=== PATIENT | female | born 2005 | race Caucasian/White ===

== ENCOUNTER 2024-08-21 09:42 | Outpatient (CLI) | payer OTHER, SELFPAY ==
--- OUTSIDE RECORDS SUMMARY | 2024-08-21 10:26 | XMS_ITS | Encounter Summary ---
Author Organization [facility] Address 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
--- OUTSIDE RECORDS SUMMARY | 2024-08-21 10:26 | XMS_ITS | Referral Summary ---
Author Organization [facility] [address] Address [address] [place] [address] Phone Care Team Providers Care Director Surgical Name Role Phone Tory Shields MD Primary Care Provider + [phone] Allergies Active Allergy Reactions Criticality Noted Date Comments Amoxicillin Hives High 05/08/2020 Medications spironolactone (ALDACTONE) 50 mg tablet 11/05/19 22 Active ondansetron ODT (ZOFRAN-ODT) 8 mg disintegrating tablet Give 1 tablet every 6 hours as needed for vomiting 8 tablet 07/22/20 22 Active Additional Information Patient not taking.Reported on 11/21/2022 medroxyPROGESTERon e 150 mg/mL injectionIndicatio ns:Encounter for surveillance of injectable contraceptive Inject 1 mL (150 mg total) into the muscle as instructed every 3 (three) months 1 mL 4 11/27/19 24 Active Active Problems Problem Noted Date Diagnosed Date Small intestinal bacterial overgrowth (SIBO) 06/2022 Overview (05/05/2022): 04-04-22 GI note says resolved on Flagyl. Abdominal pain, epigastric 01/03/2022 Overview (01/03/2022): Added automatically from request for surgery [id number] Abdominal pain, LUQ 01/03/2022 Overview (01/03/2022): Added automatically from request for surgery [id number] Hot flashes 11/16/2021 Overview (11/16/2021): 11-16-21 thyroid panel ordered: Normal. Infectious mononucleosis 08/10/2021 Overview (08/10/2021): 08/09/2021 tired, puffy eyelids, neck nodes Sinusitis 05/11/2021 Overview (05/11/2021): 05-11-21 & RLL crackles Zith X 2 Otitis externa 12/17/2020 Overview (01/07/2021): 12-17-20 worse despite COS drops so Dr. Paige prescribed Bactrim with rapid resolution of symptoms . . . Recur 01-07-21 so I Rx CiproDex and if not improving may need debridement by ENT Menometrorrhagia 01/29/2020 Overview (12/14/2020): On estrogen free Depo shot with success Acne 01/14/2020 Overview (02/15/2021): 01-13-20 Derm Rx clindamycin 1% daily (BID just as spot treatment) and tretinoin 0.05% cream hs. Right foot pain 12/27/2019 Overview (01/29/2020): 11-19-19 MRI suggested stress fx 3rd metatarsal but 12-24-19 CT negative . . . 01-29-20 still in boot and being followed Skin infection 08/19/2019 Overview (08/21/2019): 08-19-19 earring hole red and draining Keflex (Staph aureus very sensitive) Shaky 08/19/2019 Overview (02/15/2021): 08-19-19 Mother reports child gets pale and shaky with sports and this resolves with giving her something sweet; occurs even if eats protein prior. Rec measure blood sugar at the time. Rec increase fluids. 02-15-21 now this rarely occurs. Abdominal pain 05/01/2018 Overview (05/05/2022): Since January 2018 ill defined mid abdomen QID not related to meals; queasy . 05-01-18 CBC, ESR, Chem panel, celiac normal BUT low IgA. KUB full of stool so clean out - pain resolved. 06-05-18 Pedi GI JULIO DX IBS with dyspepsia, constipation; Rx Bentyl BID and omprazole and f/u Jul 2018. 06-13-18 stool calprotein normal. 01-29-20 infrequent stools with urinary frequency . . . 02-15-21 the same. 09-20-21 patient says SX gone after appendectomy for appendicitis; did she have small bowel overgrowth syndrome and the antibiotics resolved it? 11-16-21 recurrence of abdominal pain and diarrhea after meals. First go off dairy again; if this does not work restart Bentyl; if this does not work refer to GI. Celiac panel: negative. 01-23-22 [facility] GI doing labs, RUQ US (normal), EGD. EGD normal and biopsies normal. [facility] got h/o melena. Acute otitis media 01/25/2017 Overview (01/11/2018): 01-25-17 LOM amox - - - - - 12-21-17 ROM?perf Augmentin Migraine 02/15/2016 Overview (02/15/2021): 02-15-21 NO HEADACHES since I lost my smell from COVID . 2016 saw [facility] Neuro. 05-24-19 Age 13 they tend to come monthly in the week before menses. Aura of loss of peripheral vision on right, then left frontal sharp pounding headache, photophobia, phonophobia, dizzy but not nauseated; once felt right arm and right side of tongue get numb. 05-24-19 refer to Pedi Neurology. CANNOT TAKE ESTROGEN due to stroke like symptoms with her migraines, per Neurology. Myopia 02/05/2015 Overview (05/24/2019): Wears contacts Pneumonia 06/25/2014 Overview (08/20/2022): 07-22-22 4 days into influenza A still febrile and with consolidation RUL plus patchy RML and LLL Zith. Febrile seizure 08/13/2012 Overview (05/24/2019): 04-26-19; saw Neurology in 2004 and had MRI which shows question of subdural hygroma and EEG normal. Health care maintenance 08/13/2012 Overview (02/01/2019): 05-07-18 IgA 5 (just below normal range); this was found when doing celiac test. 05-29-18 free T4 1.0 and TSH 2.32. 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 . . Age 11 T3 genitalia, T2 breasts Hypoglycemia 02/15/2016 01/25/2017 Overview (10/29/2016): Hypoglycemia Molluscum contagiosum infection 02/15/2016 02/02/2017 Overview (01/25/2017): 2016 L flank Migraine without aura and re sponsive to treatment 09/07/2015 02/10/2021 Immunizations Name Administration Dates Next Due DTaP 09/17/2008, 5,03/19/2004,01/16/2004 ,2003 Hep B, Adolescent or Pediatric 03/19/2004,2003,2003 Hib (HbOC) 01/14/2005,03/19/2004,01/16/2004 ,2003 IPV 09/17/2008,01/14/2005,01/16/2004 ,2003 Influenza, Trivalent, IM (MDV) 06/16/2008,2006,07/02/2004 MMR 09/17/2008,10/22/2004 Meningococcal Conjugate (Menveo) 01/29/2020 Meningococcal MCV4P (Menactra) 02/05/2015 Pneumococcal Conjugate 7-Valent 01/14/2005,07/02,04/01/2004,2003 Tdap 02/05/2015 Varicella 09/17/2008,10/22/2004 Social History Tobacco Use Types Packs/Day Years Used Date Smoking Tobacco: Never Smokeless Tobacco: Never Tobacco Cessation:Counseling Given: Not Answered Alcohol Use Standard Drinks/Week Comments Not Currently 0 (1 standard drink = 0.6 oz pure alcohol) 1-2 beers 1 month ago; rarely used Comments No Sex and Gender Information Value Date Recorded Sex Assigned at Not on file Legal Sex Female 12:14 AM 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 Gender Identity Not on file Sexual Orientation Not on file 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 Not on file Not on file Not on file Last Filed Vital Signs Vital Sign Reading Time Taken Comments Blood Pressure 118/80 11/27/2023 1:58 PM CDT Pulse 136 07/22/2022 10:02 AM MOBILE MECHANIC Temperature 37.5 ??C (99.5 ??F) 07/22/2022 10:[address] Respiratory Rate 16 06/05/2022 9:59 AM MOBILE MECHANIC Oxygen Saturation 100% 07/22/2022 10:02 AM MOBILE MECHANIC Inhaled Oxygen Concentration - - Weight 76.7 kg (169 lb) 11/27/2023 1:58 PM CDT Height 167.6 cm (5' 6 ) 11/27/2023 1:58 PM CDT Body Mass Index 27.28 11/27/2023 1:58 PM CDT Plan of Treatment Not on file Procedures Procedure Name Priority Date/Time Associated Diagnosis Comments N. GONORRHOEAE/C. TRACHOMATIS AMPLIFICATION STAT 05/07/2020 1:28 PM CDT from Last 3 Months or Most Recently Relevant to Health Maintenance Results * N. gonorrhoeae/C. trachomatis Amplification Urine (05/07/2020 1:28 PM CDT) C. trachomatis Not Detected Not Detected [facility] Comment:Testing performed by : [facility], [address] [place] [address]., [id number] N. gonorrhoeae Not Detected Not Detected [facility] Comment: Interpretive Data Testing performed by the [facility]. This assay detects Chlamydia trachomatis and Neisseria gonorrhoeae by nucleic acid amplification testing (NAAT). This test is approved by the [place] Food and Drug Administration and the performance characteristics have been verified by the laboratory. The performance characteristics of this test have not been evaluated in individuals less than 14 years of age. Current Interpretive Data was last revised on 2018. Testing performed by: [facility], [address] [place] [address]., [id number] Urine (None) 05/07/2020 1:28 PM CDT 05/07/2020 5:00 PM CDT Paulino Beyer MD LAB MICROBIOLOGY - GENERA L ORDERABLES Final Result [facility] Department [place] [address] from Last 3 Months or Most Recently Relevant to Health Maintenance Insurance [employer] [facility] [place] [address] [place] [address] [facility] HMO/PPO Address: [facility] [id number] [place] [id number] Care Teams Director Surgical Relationship Specialty Start Date End Date Tory Shields MD [address] [place] [address] PCP - General 07/18/13
--- OUTSIDE RECORDS SUMMARY | 2024-08-21 10:26 | XMS_ITS | Clinical Summary ---
Author Organization [facility] [address] Address [address] [place] [address] Phone Care Team Providers Care Damage Adjuster Name Role Phone Tory Shields MD Primary Care Provider + [phone] Allergies Active Allergy Reactions Criticality Noted Date [...] (01/03/2022): Added automatically from request for surgery [id number] Abdominal pain, LUQ 01/03/2022 Overview (01/03/2022): Added automatically from request for surgery [id number] Hot flashes 11/16/2021 Overview (11/16/2021): 11-16-21 thyroid [...] refer to GI. Celiac panel: negative. 01-23-22 [facility] GI doing labs, RUQ US (normal), EGD. EGD normal and biopsies normal. [facility] got h/o melena. Acute otitis media 01/25/2017 Overview (01/11/2018): 01-25-17 LOM amox - - - - - 12-21-17 ROM?perf Augmentin Migraine 02/15/2016 Overview (02/15/2021): 02-15-21 NO HEADACHES since I lost my smell from COVID . 2016 saw [facility] Neuro. 05-24-19 Age 13 they tend to [...] Conjugate 7-Valent 01/14/2005,07/02,04/01/2004,2003 Tdap 02/05/2015 Varicella 09/17/2008,10/22/2004 Surgical History Surgery Date Site/Laterality Comments TONSILLECTOMY/ADENOIDECTOM Y 07/24/2007 - 07/23/2008 ORIF ELBOW FRACTURE 07/24/2008 - 07/23/2009 APPENDECTOMY 08/26/2021 [facility]; acute appendicitis Medical History Medical History Date Comments Fracture, supracondylar, elbow, closed 2008 Fracture, radius 2016 right Stress fracture of right foot 2019 3r d metatarsal, in a boot Migraine with aura Family History Medical History Relation Name Comments Diabetes Maternal Great-Grandmother Skin cancer Maternal Great-Grandmother Headache Mother Migraine AND cl uster Irritable bowel syndrome Mother Sudden Other 1 NONE Migraines Other 2 Relation Name Status Comments Maternal Great-Grandmother Mother Other 1 Other 2 Social History Tobacco Use Types Packs/Day Years Used Date Smoking Tobacco: Never Smokeless Tobacco: Never Tobacco Cessation:Counseling Given: Not Answered Alcohol Use Standard Drinks/Week Comments Not Currently 0 (1 standard drink = 0.6 oz pure alcohol) 1-2 beers 1 month ago; rarely used Comments No Sex and Gender Information Value Date Recorded Sex Assigned at Not on file Legal Sex Female 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C (99.5 ??F) 07/22/2022 10:[address] Respiratory Rate 16 06/05/2022 9:59 AM HOTEL OR MOTEL ROOM SERVICE SUPERVISOR Oxygen Saturation 100% 07/22/2022 10:02 AM HOTEL OR MOTEL ROOM SERVICE SUPERVISOR Inhaled Oxygen Concentration - - Weight 76.7 kg (169 lb) 11/27/2023 1:58 PM CDT Height 167.6 cm (5' 6 ) 11/27/2023 1:58 PM CDT Body Mass Index 27.28 11/27/2023 1:58 PM CDT Plan of Treatment Health Maintenance Due Date Last Done Comments Depression Screening 2003 Hepatitis C Screening 2003 HPV Vaccines (1 - 3-dose series) 2018 Meningococcal B Vaccine (1 o f 2 - Patient Seeks Protection) 2019 Chlamydia and Gonorrhea (GC/ CT) Screening 05/07/2021 05/07/2020 Influenza Vaccine (#1) 2024 8, 05/09/2007, 07/02/2004 Regular Well Visit/Exam 18-64 11/26/2024, 11/21/2022, 10/04/2017 DTaP/Tdap/Td Vaccine (7 - Td or Tdap) 02/05/2025 02/05/2015, 09/17/2008, 01/14/2005, Additional history exists Pneumococcal vaccine <65 Completed 005, 07/02/2004, 04/01/2004, Additional history exists Varicella Vaccines Completed 09/17/2008, 10/22/2004 Meningococcal Vaccine Completed 01/29/2020, 015 Procedures Procedure Name Priority Date/Time Associated Diagnosis Comments N. GONORRHOEAE/C. TRACHOMATIS AMPLIFICATION STAT 05/07/2020 1:28 PM CDT from Last 3 Months or Most Recently Relevant to Health Maintenance Results * N. gonorrhoeae/C. trachomatis Amplification Urine (05/07/2020 1:28 PM CDT) C. trachomatis Not Detected Not Detected [facility] Comment:Testing performed by : [facility], [address] [place] [address]., [id number] N. gonorrhoeae Not Detected Not Detected [facility] Comment: Interpretive Data Testing performed by the [facility]. This assay detects Chlamydia trachomatis [...] last revised on 2018. Testing performed by: [facility], [address] [place] [address]., [id number] Urine (None) 05/07/2020 1:28 PM CDT 05/07/2020 5:00 PM CDT Paulino Beyer MD LAB MICROBIOLOGY - GENERA L ORDERABLES Final Result [facility] Department [place] [address] from Last 3 Months or Most Recently Relevant to Health Maintenance Insurance [facility] Care Teams Damage Adjuster Relationship Specialty Start Date End Date Tory Shields MD [address] [place] [address] PCP - General 07/18/13
--- OUTSIDE RECORDS SUMMARY | 2024-08-21 10:26 | XMS_ITS | Clinical Summary ---
Author Organization [facility] Address [address] [place] [address]. [place], [place] [id number] [place] [id number] Care Team Providers Care Science Manager Name Role Phone Austin George Unavailable [phone] Tory Shields MD Primary Care Provider [phone] Medications spironolactone 25 MG tabletIndication s:acne Take 25 mg by mouth daily. Indications : acne Active Social History Tobacco Use Types Packs/Day Years Used Date Smoking Tobacco: Never Smokeless Tobacco: Never Alcohol Use Standard Drinks/Week Comments Never 0 (1 standard drink = 0.6 oz pur e alcohol) Comments Unknown Sex and Gender Information Value Date Recorded Sex Assigned at Not on file Legal Sex Female 11:40 AM CDT Gender Identity Not on file Sexual Orientation Not on file Last Filed Vital Signs Vital Sign Reading Time Taken Comments Blood Pressure 115/57 08/26/2021 3:28 PM SHANK MAKER Pulse 78 08/26/2021 3:28 PM SHANK MAKER Temperature 36.3 ??C (97.3 ??F) 08/26/2021 1:33 PM CS T Respiratory Rate 18 08/26/2021 3:28 PM SHANK MAKER Oxygen Saturation 99% 08/26/2021 3:28 PM SHANK MAKER Inhaled Oxygen Concentration - - Weight 64.4 kg (142 lb) 08/26/2021 11:44 AM SHANK MAKER Height 167.6 cm (5' 6 ) 08/26/2021 11:44 AM SHANK MAKER Body Mass Index 22.92 08/26/2021 11:44 AM SHANK MAKER Plan of Treatment Health Maintenance Due Date Last Done Comments Annual Physical 2006 HPV Vaccines (1 - 3-dose series) 2018 Meningococcal B Vaccine (1 of 2 - Standard) 2019 Hepatitis C 2021 COVID-19 Vaccine ( - season) 2024 Influenza Adult (#1) 2024 06/16/2008, 05/09/2007, 07/02/2004 DTaP, Tdap and Td Vaccines (7 - Td or Tdap) 02/05/2025 02/05/2015, 09/17/2008, 01/14/2005, Additional history exists Hepatitis B Vaccines Completed 03/19/2004, 2003, 2003 Pneumococcal Vaccine: Pediatrics (0 to 5 Years) and At-Risk Patients (6 to 64 Years) Aged Out 01/14/2005, 07/02/2004, 04/01/2004, Additional history exists No longer eligible based on patient's age to complete this topic Meningococcal Vaccine Completed 01/29/2020, 015 RSV Immunizations Under 20 Months Aged Out No longer eligible based on patient's age to complete this topic Insurance Care Teams Science Manager Relationship Specialty Start Date End Date Tory Shields MD [address] [place] [address] PCP - General PEDIATRICS 05/04/19 [place] [address] [place] [address] Physician Software Reverse Engineer PHYSICIAN WAISTLINE JOINER 05/04/19
--- OUTSIDE RECORDS SUMMARY | 2024-08-21 10:26 | XMS_ITS | Continuity of Care Document ---
Author Name [facility] Address [address] [place] [address] Organization [facility] Care Team Providers Care Upholstery Mechanic Name Role Phone [facility] Unavailable Unavailable Allergies, Adverse Reactions, Alerts Substance Category Reaction Severity Reaction type Status Date Reported Comments Source amoxicillin Assertion Drug allergy Active [facility]
--- OUTSIDE RECORDS SUMMARY | 2024-08-21 10:26 | XMS_ITS | Clinical Summary ---
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
--- NOTE | 2024-08-21 11:00 | NEURO_ITS ---
Impression: # Complains of pain/paresthesia of hands. Non-diabetic. ? # Normal Nerve Conduction Study. ? # No Carpal Tunnel Syndrome or ulnar neuropathy. ? # Normal needle/EMG exam. Nerve Conduction Studies Anti Sensory Summary Table ?Stim Site NR Peak (ms) P-T Amp (?V) Site1 Site2 Delta-P (ms) Dist (cm) [place] (m/s) Left Median Anti Sensory (2-3nd Digit) Wrist ? 2.7 72.6 Wrist 2-3nd Digit 2.7 14.0 52 Wrist ? 2.7 89.7 Wrist 2-3nd Digit 2.7 14.0 52 Right Median Anti Sensory (2-3nd Digit) Wrist ? 2.4 92.9 Wrist 2-3nd Digit 2.4 14.0 58 Wrist ? 2.5 68.5 Wrist 2-3nd Digit 2.4 14.0 58 Left Radial Anti Sensory (Base 1st Digit) Wrist ? 2.3 21.4 Wrist Base 1st Digit 2.3 0.0 Right Radial Anti Sensory (Base 1st Digit) Wrist ? 2.0 36.3 Wrist Base 1st Digit 2.0 0.0 Left Ulnar Anti Sensory (5th Digit) Wrist ? 2.4 34.7 Wrist 5th Digit 2.4 14.0 58 Right Ulnar Anti Sensory (5th Digit) Wrist ? 2.3 72.7 Wrist 5th Digit 2.3 14.0 61 Motor Summary Table ?Stim Site NR Onset (ms) O-P Amp (mV) Site1 Site2 Delta-0 (ms) Dist (cm) [place] (m/s) Left Median Motor (Abd Poll Brev) Wrist ? 2.5 5.5 Elbow Wrist 5.2 30.0 58 Elbow ? 7.7 3.6 Right Median Motor (Abd Poll Brev) Wrist ? 3.1 3.6 Elbow Wrist 4.9 29.0 59 Elbow ? 8.0 2.4 Left Ulnar Motor (Abd Dig Minimi) Wrist ? 2.7 9.2 A Elbow Wrist 5.7 33.0 58 A Elbow ? 8.4 7.7 Right Ulnar Motor (Abd Dig Minimi) Wrist ? 2.3 11.6 A Elbow Wrist 5.2 30.0 58 A Elbow ? 7.5 10.4 F Wave Studies ?NR F-Lat (ms) L-R F-Lat (ms) Left Median (Mrkrs) (Abd Poll Brev) ? 26.88 0.78 Right Median (Mrkrs) (Abd Poll Brev) ? 26.09 0.78 Left Ulnar (Mrkrs) (Abd Dig Min) ? 27.58 0.88 Right Ulnar (Mrkrs) (Abd Dig Min) ? 26.70 0.88 EMG ?Side Muscle Nerve Root Ins Act Fibs Amp Dur Recrt Comment Right 1stDorInt Ulnar C8-T1 Nml Nml Nml Nml Nml Right Ext Indicis Radial (Post Int) C7-8 Nml Nml Nml Nml Nml Right Ext Digitorum Radial (Post Int) C7-8 Nml Nml Nml Nml Nml Right BrachioRad Radial C5-6 Nml Nml Nml Nml Nml Right PronatorTeres Median C6-7 Nml Nml Nml Nml Nml Right Abd Poll Brev Median C8-T1 Nml Nml Nml Nml Nml Right ABD Dig Min Ulnar C8-T1 Nml Nml Nml Nml Nml Left 1stDorInt Ulnar C8-T1 Nml Nml Nml Nml Nml Left Ext Indicis Radial (Post Int) C7-8 Nml Nml Nml Nml Nml Left Ext Digitorum Radial (Post Int) C7-8 Nml Nml Nml Nml Nml Left BrachioRad Radial C5-6 Nml Nml Nml Nml Nml Left PronatorTeres Median C6-7 Nml Nml Nml Nml Nml Left Abd Poll Brev Median C8-T1 Nml Nml Nml Nml Nml Left ABD Dig Min Ulnar C8-T1 Nml Nml Nml Nml Nml MTDD
== END 2024-08-21 09:43 | disposition home or self-care (01) ==
PROVIDERS: Visit Provider Family Medicine
DX: R20.0 Anesthesia of skin (principal); R20.2 Paresthesia of skin
CPT/HCPCS: 95886; 95911